=== PATIENT | male | born 1995 | race Caucasian/White ===

== ENCOUNTER 2017-09-11 13:53 | Emergency (ER) | payer BC ==
[~2017-09-11] VITALS: Ht 182.9 cm; Wt 86.2 kg
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
[2017-09-11] MEDS ORDERED: SULFAMETH/TRIMETH 800/160 MG TABLET PO ONE (14:45)
[2017-09-11] MEDS ORDERED: CEPHALEXIN MONOHYDRATE 500 MG CAPSULE PO ONE (14:45)
--- NOTE | 2017-09-11 15:07 | NUR ---
Patient discharged to home in stable conditon. Written and verbal after care instructions and referral given. Patient verbalizes understanding of instructions. Translated by pt's family.
[2017-09-11] MEDS ORDERED: SULFAMETH/TRIMETH 800/160 MG TABLET ONE (15:11)
[2017-09-11] MEDS ORDERED: CEPHALEXIN MONOHYDRATE 500 MG CAPSULE ONE (15:11)
--- NOTE | 2017-09-11 15:17 | NUR ---
Patient discharged to home in stable conditon. Written and verbal after care instructions & RX given. Patient verbalizes understanding of instructions.
== END 2017-09-11 15:24 | disposition home or self-care (01) ==
LOC: ER 13:53
DX: L03.115 Cellulitis of right lower limb (principal)
CPT/HCPCS: 73590; A4663